=== PATIENT | female | born 1945 | race Two or more races ===

== ENCOUNTER 2022-12-11 19:13 | Inpatient (IN) | payer MEDICAID, OTHER ==
[~2022-12-11] VITALS: Ht 139.7 cm; Wt 47.7 kg
[2022-12-11] MEDS ORDERED: LACTATED RINGER'S 1,000 ML IV ONE (19:45)
[2022-12-11 20:36] LABS: Basophils # (auto) 0 10 ^3/uL (0-0.2); Basophils % (auto) 0.2 % (0.0-2.0); Eosinophils # (auto) 0 10 ^3/uL (0-0.8); Hematocrit 29.3 % (36.0-46.0); Hemoglobin 10.2 g/dL (12.2-16.2); Lymphocytes # (auto) 0.9 10 ^3/uL (0.4-5.4); Lymphocytes % (auto) 7.8 % (10.0-50.0); Mean Corpuscular Hemoglobin 30.4 pg (28.0-32.0); Mean Corpuscular Volume 86.9 fL (80.0-100.0); Monocytes # (auto) 0.4 10 ^3/uL (0-1.3); Monocytes % (auto) 3.8 % (0.0-12.0); Neutrophils # (auto) 9.8 10 ^3/uL (1.6-8.6); Neutrophils % (auto) 88.2 % (37.0-80.0); Nucleated Red Blood Cells % 0.1 %; Red Blood Cells 3.37 10^6/uL (4.0-5.20); Red Cell Distribution Width 13.4 % (11.8-14.3); White Blood Cell 11.1 10^3/uL (4.4-10.8)
[2022-12-11 20:48] LABS: Calcium 8.9 mg/dL (8.5-10.1); Magnesium 1.9 mg/dL (1.6-2.6); Potassium 3.9 mmol/L (3.5-5.1)
[2022-12-11 20:50] LABS: BUN/Creatinine Ratio 35.1
[2022-12-11 21:55] LABS: Bilirubin, Total 0.8 mg/dL (0.2-1.0); Total Protein 7.6 g/dL (6.4-8.2)
[2022-12-11] MEDS ORDERED: cefTRIAXone 1GM/50ML D5W 50 ML IV ONE (22:00)
[2022-12-11] MEDS ORDERED: AZITHROMYCIN 500MG/ 250ML 250 ML IV ONE (22:00)
[2022-12-11] MEDS ORDERED: MORPHINE SULFATE INJ 2 MG/ml SYRG IV PRN (23:00)
[2022-12-11] MEDS ORDERED: NITROGLYCERIN 0.4 MG SL TAB SL PRN (23:00)
[2022-12-11] MEDS ORDERED: ONDANSETRON HCL 4 MG/2 ML VIAL IV PRN (23:00)
[2022-12-11] MEDS ORDERED: DEXTROSE (50%) 50ML SYRG IV PRN (23:00)
[2022-12-11] MEDS ORDERED: ACETAMINOPHEN 325 MG TAB PO PRN (23:00)
[2022-12-11] MEDS ORDERED: ALBUTEROL SULF 2.5 MG/0.5ML(0.5%) NEB SOLN NEB PRN (23:00)
[2022-12-11] MEDS: ACCU-CHEK COMFORT CURVE STRIP VI SCH (23:15)
[2022-12-11] MEDS: InsuLIN REG 1unit/0.01ml Soln (100units/ml) SC SCH (23:25)
[2022-12-12 02:50] VITALS: BP 135/93
[2022-12-12] MEDS: ACCU-CHEK COMFORT CURVE STRIP VI SCH ×5 (04:06→20:00)
[2022-12-12] MEDS: InsuLIN REG 1unit/0.01ml Soln (100units/ml) SC SCH ×5 (04:20→21:15)
[2022-12-12 04:52] LABS: Basophils # (auto) 0 10 ^3/uL (0-0.2); Basophils % (auto) 0.1 % (0.0-2.0); Eosinophils # (auto) 0 10 ^3/uL (0-0.8); Hematocrit 24.7 % (36.0-46.0); Hemoglobin 8.7 g/dL (12.2-16.2); Lymphocytes # (auto) 0.8 10 ^3/uL (0.4-5.4); Lymphocytes % (auto) 7.7 % (10.0-50.0); Mean Corpuscular Hemoglobin 30.6 pg (28.0-32.0); Mean Corpuscular Hgb Conc. 35.2 g/dL (32.0-36.0); Monocytes # (auto) 0.5 10 ^3/uL (0-1.3); Monocytes % (auto) 4.2 % (0.0-12.0); Neutrophils # (auto) 9.5 10 ^3/uL (1.6-8.6); Red Blood Cells 2.84 10^6/uL (4.0-5.20); Red Cell Distribution Width 13.5 % (11.8-14.3); White Blood Cell 10.7 10^3/uL (4.4-10.8)
[2022-12-12 05:07] LABS: Albumin 2.6 g/dL (3.4-5.0); BUN/Creatinine Ratio 32.8; Calcium 8.5 mg/dL (8.5-10.1); Potassium 3.4 mmol/L (3.5-5.1)
[2022-12-12 05:10] LABS: Bilirubin, Total 0.4 mg/dL (0.2-1.0); Total Protein 6.8 g/dL (6.4-8.2)
[2022-12-12] MEDS ORDERED: PANTOPRAZOLE 40 MG TAB PO SCH (10:00)
[2022-12-12] MEDS: amLODIPine BESYLATE 5 MG TAB PO SCH (10:49)
[2022-12-12] MEDS: METOPROLOL SUCCINATE XL 50 MG TAB PO SCH (10:50)
[2022-12-12] MEDS: cefTRIAXone 1GM/50ML D5W 50 ML IV SCH (21:13)
[2022-12-12] MEDS: AZITHROMYCIN 500MG/ 250ML 250 ML IV SCH (22:24)
[2022-12-13] MEDS: ACCU-CHEK COMFORT CURVE STRIP VI SCH ×6 (02:06→21:56)
[2022-12-13] MEDS: InsuLIN REG 1unit/0.01ml Soln (100units/ml) SC SCH ×6 (02:15→21:57)
[2022-12-13 05:33] VITALS: BP 124/46
[2022-12-13 09:00] VITALS: BP 132/54
[2022-12-13] MEDS: amLODIPine BESYLATE 5 MG TAB PO SCH (10:26)
[2022-12-13] MEDS: METOPROLOL SUCCINATE XL 50 MG TAB PO SCH (10:27)
[2022-12-13 12:48] VITALS: BP 128/72
[2022-12-13 16:44] VITALS: BP 127/53
[2022-12-13 20:00] VITALS: BP 144/59
[2022-12-13 22:00] VITALS: BP 144/59
[2022-12-13] MEDS: AZITHROMYCIN 500MG/ 250ML 250 ML IV SCH (22:00)
[2022-12-13] MEDS: cefTRIAXone 1GM/50ML D5W 50 ML IV SCH (22:10)
[2022-12-14] MEDS: ACCU-CHEK COMFORT CURVE STRIP VI SCH ×7 (03:56→23:31)
[2022-12-14] MEDS: InsuLIN REG 1unit/0.01ml Soln (100units/ml) SC SCH ×7 (04:04→23:39)
[2022-12-14 05:00] VITALS: BP 146/62
[2022-12-14 09:00] VITALS: BP 163/62
[2022-12-14] MEDS: amLODIPine BESYLATE 5 MG TAB PO SCH (10:25)
[2022-12-14] MEDS: METOPROLOL SUCCINATE XL 50 MG TAB PO SCH (10:25)
[2022-12-14 13:00] VITALS: BP 136/53
[2022-12-14 16:54] VITALS: BP 130/58
[2022-12-14 20:00] VITALS: BP 147/56
[2022-12-14] MEDS: cefTRIAXone 1GM/50ML D5W 50 ML IV SCH (20:21)
[2022-12-14] MEDS: AZITHROMYCIN 500MG/ 250ML 250 ML IV SCH (21:22)
[2022-12-14 22:00] VITALS: BP 147/56
[2022-12-15 01:49] VITALS: BP 147/56
[2022-12-15] MEDS: InsuLIN REG 1unit/0.01ml Soln (100units/ml) SC SCH ×5 (04:00→20:00)
[2022-12-15 05:00] VITALS: BP 139/71
[2022-12-15] MEDS: ACCU-CHEK COMFORT CURVE STRIP VI SCH ×6 (05:01→23:59)
[2022-12-15 09:00] VITALS: BP 149/76
[2022-12-15] MEDS: METOPROLOL SUCCINATE XL 50 MG TAB PO SCH (09:33)
[2022-12-15] MEDS: amLODIPine BESYLATE 5 MG TAB PO SCH (09:33)
[2022-12-15 13:00] VITALS: BP 155/60
[2022-12-15 17:02] VITALS: BP 118/54
[2022-12-15] MEDS: cefTRIAXone 1GM/50ML D5W 50 ML IV SCH (20:20)
[2022-12-15] MEDS: AZITHROMYCIN 500MG/ 250ML 250 ML IV SCH (21:40)
[2022-12-15 22:00] VITALS: BP 126/49
[2022-12-16] MEDS: InsuLIN REG 1unit/0.01ml Soln (100units/ml) SC SCH ×5 (04:00→16:00)
[2022-12-16] MEDS: ACCU-CHEK COMFORT CURVE STRIP VI SCH ×5 (04:21→16:45)
[2022-12-16 05:00] VITALS: BP 131/59
[2022-12-16 08:30] VITALS: BP 130/52
[2022-12-16 09:00] VITALS: BP 130/52
[2022-12-16] MEDS: METOPROLOL SUCCINATE XL 50 MG TAB PO SCH (10:08)
[2022-12-16] MEDS: amLODIPine BESYLATE 5 MG TAB PO SCH (10:08)
[2022-12-16] MEDS ORDERED: METO-6 PO (10:30)
[2022-12-16] MEDS ORDERED: AML5T PO (10:30)
[2022-12-16] MEDS ORDERED: ALBUAER3 IN (10:31)
[2022-12-16] MEDS ORDERED: AZIT250T PO (10:31)
[2022-12-16 13:00] VITALS: BP 123/73
[2022-12-16] MEDS ORDERED: AZITHROMYCIN 250 MG TAB PO SCH (20:00)
== END 2022-12-16 17:37 | disposition home or self-care (01) | DRG 137 ==
LOC: ER 19:13 → TELE 23:00 → TELE-CENTR 12-12 22:47
PROVIDERS: ADMIT Nurse Practitioner; ATTEND Internal Medicine
DX: U07.1 COVID-19 (principal); J12.82 Pneumonia due to coronavirus disease 2019; E43 Unspecified severe protein-calorie malnutrition; N17.9 Acute kidney failure, unspecified; E87.3 Alkalosis; I10 Essential (primary) hypertension; Z68.24 Body mass index [BMI] 24.0-24.9, adult; E11.65 Type 2 diabetes mellitus with hyperglycemia
CPT/HCPCS: 36415; 36600; 71045; 80053; 82010; 82805; 82962; 83605; 83690; 83735; 83880; 83930; 84484; 85025; 85379; 87040; 87426; 93005; 96361; 96366; 96372; G0378; J0696; J1815